=== PATIENT | male | born 1990 | race Caucasian/White ===

== ENCOUNTER 2017-03-20 08:30 | Emergency (ER) | payer MEDICAID ==
[~2017-03-20] VITALS: Ht 185.4 cm; Wt 70.1 kg
[~2017-03-20 08:30] MED LIST: IBUP200C PO
[2017-03-20 08:34] VITALS: BP 148/89
== END 2017-03-20 09:48 | disposition home or self-care (01) ==
LOC: ED 09:15
DX: M72.2 Plantar fascial fibromatosis (principal); F17.210 Nicotine dependence, cigarettes, uncomplicated
CPT/HCPCS: 99284

== ENCOUNTER 2017-06-12 16:23 | Emergency (ER) | payer MEDICAID ==
[~2017-06-12] VITALS: Ht 185.4 cm; Wt 65.9 kg
[2017-06-12 16:25] VITALS: BP 122/84
[2017-06-12] MEDS ORDERED: LIDOCAINE 1%, 20ML ONE (16:52)
[2017-06-12] MEDS ORDERED: LIDOCAINE 1%, 20ML SQ ONE (17:00)
== END 2017-06-12 18:18 | disposition home or self-care (01) ==
LOC: ED 17:04
DX: L03.113 Cellulitis of right upper limb (principal); M72.2 Plantar fascial fibromatosis
CPT/HCPCS: 10060; 99283

== ENCOUNTER 2017-06-12 22:19 | Emergency (ER) | payer MEDICAID ==
[~2017-06-12] VITALS: Ht 185.4 cm; Wt 66.4 kg
[2017-06-12 22:21] VITALS: BP 120/80
== END 2017-06-12 23:17 | disposition home or self-care (01) ==
LOC: ED 23:16
DX: L02.413 Cutaneous abscess of right upper limb (principal)
CPT/HCPCS: 99281